=== PATIENT | female | born 1995 | race Caucasian/White ===

== ENCOUNTER 2021-10-23 09:03 | Emergency (ER) | payer BC ==
[~2021-10-23] VITALS: Ht 142.2 cm; Wt 49.9 kg
== END 2021-10-23 17:44 | disposition home or self-care (01) ==
LOC: ER 09:03
DX: R55 Syncope and collapse (principal); F10.129 Alcohol abuse with intoxication, unspecified; R47.1 Dysarthria and anarthria; W10.9XXA Fall (on) (from) unspecified stairs and steps, initial encounter; Y93.89 Activity, other specified; Y92.9 Unspecified place or not applicable; Z20.822 Contact with and (suspected) exposure to COVID-19